=== PATIENT | male | born 1965 | race Caucasian/White ===

== ENCOUNTER 2021-06-29 14:04 | Observation (INO) | payer OTHER ==
--- NOTE | 2021-06-29 14:07 | ERPHSYRPT ---
- History of Present Illness Time Seen by Provider: 06/29/21 14:07 Historian: patient Exam Limitations: no limitations Physician History: This is an obese 56-year-old white male who has a history of diabetes and hypertension and has not been taking his medication because he often forgets. He states that it has been at least 3 days since he took any of his medication. 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 It has been hurting since that time. In addition, at approximate 10:00 this morning, after eating a large [employer] breakfast, patient began having significant abdominal pain which she describes as severe and generalized. Patient has had an appendectomy in the past. His other intra-abdominal organs remain. He has had no other intra-abdominal surgeries. Patient denies chest pain. He denies shortness of breath. He has no nausea vomiting or diarrhea symptoms. He has no cough or fever. Timing/Duration: today Activities at Onset: none Quality: aching, throbbing Abdominal Pain Onset Location: generalized abdomen Pain Radiation: no radiation Severity of Pain-Max: moderate Severity of Pain-Current: moderate Modifying Factors: Improves With: nothing Associated Symptoms: No chest pain, No diarrhea, No nausea, No shortness of breath, No vomiting Previous symptoms: no prior history Allergies/Adverse Reactions: Iodinated Contrast Media Adverse Reaction (Verified 06/29/21 14:35) Home Medications: Empagliflozin [Jardiance] 10 mg PO DAILY 06/29/21 [History] Fluoxetine HCl 20 mg [Prozac 20 MG] 20 mg PO DAILY 06/29/21 [History] Lisinopril 20 mg [Zestril 20 MG] 20 mg PO DAILY 06/29/21 [History] Travel Risk - International Travel Have you traveled outside of the country in past 3 weeks: No - Coronavirus Screening Are you exhibiting any of the following symptoms?: No Close contact with a COVID-19 positive Pt in past 14-21 Days: No - Review of Systems Constitutional: No Symptoms Eyes: No Symptoms Ears, Nose, & Throat: No Symptoms Respiratory: No Symptoms Cardiac: No Symptoms Abdominal/Gastrointestinal: Abdominal Pain Genitourinary Symptoms: No Symptoms Musculoskeletal: No Symptoms Skin: No Symptoms Neurological: No Symptoms Psychological: No Symptoms Endocrine: No Symptoms Hematologic/Lymphatic: No Symptoms Immunological/Allergic: No Symptoms All Other Systems: Reviewed and Negative - Past Medical History Pertinent Past Medical History: Yes - Past Surgical History Past Surgical History: Yes - Nursing Vital Signs Nursing Vital Signs: Initial Vital Signs Temperature 96.7 F 06/29/21 14:11 Pulse Rate 74 06/29/21 14:11 Blood Pressure 236/132 06/29/21 14:11 O2 Sat by Pulse Oximetry 97 06/29/21 14:11 Pain Scale Pain Intensity 5 - Physical Exam General Appearance: no apparent distress, alert, anxiety, obese Eye Exam: PERRL/EOMI, eyes nml inspection Ears, Nose, Throat Exam: normal ENT inspection, moist mucous membranes Neck Exam: normal inspection, non-tender, supple, full range of motion Respiratory Exam: normal breath sounds, lungs clear, No chest tenderness, No respiratory distress, No airway intact Cardiovascular Exam: regular rate/rhythm, normal heart sounds, normal peripheral pulses Gastrointestinal/Abdomen Exam: soft, normal bowel sounds, tenderness (Mild diffuse), guarding ( tenderness to palpation), No rebound Rectal Exam: not done Back Exam: normal inspection, normal range of motion, No CVA tenderness, No vertebral tenderness Extremity Exam: normal inspection, normal range of motion, pelvis stable Neurologic Exam: alert, oriented x 3, cooperative, 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, normal mood/affect, nml cerebellar function, nml station & gait, sensation nml Skin Exam: normal color, warm, dry Lymphatic Exam: No adenopathy SpO2 Interpretation: normal O2 Delivery: Room Air - Course Nursing assessment & vital signs reviewed: Yes Ordered Tests: Active Orders 24 hr Category Date Time Status IV Insertion STAT Care 06/29/21 14:52 Active ABDOMEN AND PELVIS W/0 CONTRAS [CT] Stat Exams 06/29/21 14:52 Completed FEMUR Stat Exams 06/29/21 15:21 Completed AMYLASE Stat Lab 06/29/21 14:52 Completed CBC W DIFF Stat Lab 06/29/21 14:52 Completed CMP Stat Lab 06/29/21 14:52 Completed LIPASE Stat Lab 06/29/21 14:52 Completed Lactic Acid Stat Lab 06/29/21 15:10 Completed POCT GLUCOSE Stat Lab 06/29/21 14:23 Completed TROPONIN Q3H Lab 06/29/21 18:30 Completed TROPONIN Q3H Lab 06/29/21 21:30 Ordered TROPONIN Q3H Lab 06/30/21 00:30 Ordered TROPONIN Q3H Lab 06/30/21 03:30 Ordered TROPONIN Q3H Lab 06/30/21 06:30 Ordered UA W/RFX UR CULTURE Stat Lab 06/29/21 16:45 Completed Transfer Order Routine Transfer 06/29/21 Ordered Medication Summary Discontinued Medications Generic Name Dose Route Start Last Admin Trade Name Mere PRN Reason Stop Dose Admin Clonidine 0.1 mg 06/29/21 17:46 06/29/21 17:49 Clonidine Hcl 0.1 Mg Tablet PO 06/29/21 17:47 0.1 mg STAT ONE Administration Clonidine Confirm 06/29/21 17:49 Clonidine Hcl 0.1 Mg Tablet Administered 06/29/21 17:50 Dose 0.1 mg .ROUTE .STK-MED ONE Enalaprilat 1.25 mg 06/29/21 16:33 06/29/21 16:53 Enalaprilat 2.5 Mg Injection IV 06/29/21 16:34 1.25 mg STAT ONE Administration Enalaprilat Confirm 06/29/21 16:49 Enalaprilat 2.5 Mg Injection Administered 06/29/21 16:50 Dose 2.5 mg IV .STK-MED ONE Enalaprilat 0.625 mg 06/29/21 18:58 06/29/21 19:40 Enalaprilat 2.5 Mg Injection IV 06/29/21 18:59 0.625 mg STAT ONE Administration Enalaprilat Confirm 06/29/21 19:36 Enalaprilat 2.5 Mg Injection Administered 06/29/21 19:37 Dose 2.5 mg IV .STK-MED ONE Hydromorphone HCl 1 mg 06/29/21 14:52 06/29/21 15:28 Hydromorphone 1 Mg/1ml Inj 1 Mg/Ml Syringe IV 06/29/21 14:53 1 mg STAT ONE Administration Hydromorphone HCl Confirm 06/29/21 15:26 Hydromorphone 1 Mg/1ml Inj 1 Mg/Ml Syringe Administered 06/29/21 15:27 Dose 1 mg .ROUTE .STK-MED ONE Hydromorphone HCl 1 mg 06/29/21 18:01 06/29/21 18:11 Hydromorphone 1 Mg/1ml Inj 1 Mg/Ml Syringe IV 06/29/21 18:02 1 mg STAT ONE Administration Hydromorphone HCl Confirm 06/29/21 18:06 Hydromorphone 1 Mg/1ml Inj 1 Mg/Ml Syringe Administered 06/29/21 18:07 Dose 1 mg .ROUTE .STK-MED ONE Sodium Chloride 1,000 mls @ 999 mls/hr 06/29/21 14:52 06/29/21 16:48 Sodium Chloride 0.9% 1000 Ml IV 06/29/21 15:52 Infused .Q1H1M STA Infusion Sodium Chloride Confirm 06/29/21 15:26 Sodium Chloride 0.9% 1000 Ml Administered 06/29/21 15:27 Dose 1,000 mls @ ud .ROUTE .STK-MED ONE Sodium Chloride 1,000 mls @ 999 mls/hr 06/29/21 18:01 06/29/21 18:09 Sodium Chloride 0.9% 1000 Ml IV 06/29/21 19:01 999 mls/hr .Q1H1M STA Administration Sodium Chloride Confirm 06/29/21 18:06 Sodium Chloride 0.9% 1000 Ml Administered 06/29/21 18:07 Dose 1,000 mls @ ud .ROUTE .STK-MED ONE Sodium Chloride Confirm 06/29/21 18:20 Sodium Chloride 0.9% 50 Ml Administered 06/29/21 18:21 Dose 50 mls @ ud IV .STK-MED ONE Ondansetron HCl 4 mg 06/29/21 14:52 06/29/21 15:27 Ondansetron Hcl 4 Mg/2 Ml Vial IV 06/29/21 14:53 4 mg STAT ONE Administration Ondansetron HCl Confirm 06/29/21 15:26 Ondansetron Hcl 4 Mg/2 Ml Vial Administered 06/29/21 15:27 Dose 4 mg .ROUTE .STK-MED ONE Prochlorperazine Edisylate 10 mg 06/29/21 18:02 06/29/21 18:13 Prochlorperazine Edisylate 10 Mg/2 Ml Vial IV 06/29/21 18:03 10 mg STAT ONE Administration Prochlorperazine Edisylate Confirm 06/29/21 18:06 Prochlorperazine Edisylate 10 Mg/2 Ml Vial Administered 06/29/21 18:07 Dose 10 mg .ROUTE .STK-MED ONE Lab/Rad Data: Laboratory Result Diagrams 06/29/21 14:52 06/29/21 14:52 Laboratory Results 06/29/21 06/29/21 06/29/21 Range/Units 18:30 16:45 15:10 WBC (4.0-10.5) K/mm3 RBC (4.1-5.6) M/mm3 Hgb (12.5-18.0) gm/dl Hct (42-50) % MCV (78-100) fl MCH (26-32) pg MCHC (32-36) g/dl RDW (11.5-14.0) % Plt Count (150-450) K/mm3 MPV (7.5-11.0) fl Gran % (36.0-66.0) % Eos # (Auto) (0-0.5) Absolute Lymphs (auto) (1.0-4.6) Absolute Monos (auto) (0.0-1.3) Lymphocytes % (24.0-44.0) % Monocytes % (0.0-12.0) % Eosinophils % (0.00-5.0) % Basophils % (0.0-0.4) % Absolute Granulocytes (1.4-6.9) Basophils # (0-0.4) Sodium (137-145) mmol/L Potassium (3.5-5.1) mmol/L Chloride (98-107) mmol/L Carbon Dioxide (22-30) mmol/L Anion Gap (5-15) MEQ/L BUN (9-20) mg/dL Creatinine (0.66-1.25) mg/dL Estimated GFR ML/MIN Glucose (74-106) mg/dL POC Glucometer (74 to 106) mg/dL Lactic Acid 1.4 (0.4-2.0) Calcium (8.4-10.2) mg/dL Total Bilirubin (0.2-1.3) mg/dL AST (17-59) U/L ALT (0-50) U/L Alkaline Phosphatase (38-126) U/L Troponin I < 0.012 (0.000-0.034) ng/mL Serum Total Protein (6.3-8.2) g/dL Albumin (3.5-5.0) g/dL Amylase (30-110) U/L Lipase (23-300) U/L Urine Color STRAW (YELLOW) Urine Appearance CLEAR (CLEAR) Urine pH 8.0 (5-6) Ur Specific [place] 1.021 (1.005-1.025) Urine Protein 100 (Negative) Urine Ketones SMALL (NEGATIVE) Urine Blood NEGATIVE (0-5) Tab/ul Urine Nitrite NEGATIVE (NEGATIVE) Urine Bilirubin NEGATIVE (NEGATIVE) Urine Urobilinogen NEGATIVE (0-1) mg/dL Ur Leukocyte Esterase NEGATIVE (NEGATIVE) Urine WBC (Auto) NONE (0-5) /HPF Urine RBC (Auto) NONE (0-2) /HPF U Epithel Cells (Auto) NONE (FEW) /HPF Urine Bacteria (Auto) NONE (NEGATIVE) /HPF Urine Culture Reflexed NO (NO) Urine Glucose >=500 (NEGATIVE) mg/dL 06/29/21 06/29/21 06/29/21 Range/Units 14:52 14:52 14:23 WBC 11.2 H (4.0-10.5) K/mm3 RBC 6.04 H (4.1-5.6) M/mm3 Hgb 16.0 (12.5-18.0) gm/dl Hct 46.4 (42-50) % MCV 76.8 L (78-100) fl MCH 26.5 (26-32) pg MCHC 34.5 (32-36) g/dl RDW 13.1 (11.5-14.0) % Plt Count 185 (150-450) K/mm3 MPV 11.1 H (7.5-11.0) fl Gran % 83.2 H (36.0-66.0) % Eos # (Auto) 0.04 (0-0.5) Absolute Lymphs (auto) 1.35 (1.0-4.6) Absolute Monos (auto) 0.47 (0.0-1.3) Lymphocytes % 12.0 L (24.0-44.0) % Monocytes % 4.2 (0.0-12.0) % Eosinophils % 0.4 (0.00-5.0) % Basophils % 0.2 (0.0-0.4) % Absolute Granulocytes 9.34 H (1.4-6.9) Basophils # 0.02 (0-0.4) Sodium 138 (137-145) mmol/L Potassium 3.8 (3.5-5.1) mmol/L Chloride 99 (98-107) mmol/L Carbon Dioxide 26 (22-30) mmol/L Anion Gap 16.6 H (5-15) MEQ/L BUN 9 (9-20) mg/dL Creatinine 0.60 L (0.66-1.25) mg/dL Estimated GFR > 60.0 ML/MIN Glucose 302 H (74-106) mg/dL POC Glucometer 309 H (74 to 106) mg/dL Lactic Acid (0.4-2.0) Calcium 8.9 (8.4-10.2) mg/dL Total Bilirubin 2.30 H (0.2-1.3) mg/dL AST 41 (17-59) U/L ALT 30 (0-50) U/L Alkaline Phosphatase 110 (38-126) U/L Troponin I (0.000-0.034) ng/mL Serum Total Protein 7.5 (6.3-8.2) g/dL Albumin 4.6 (3.5-5.0) g/dL Amylase 58 (30-110) U/L Lipase 192 (23-300) U/L Urine Color (YELLOW) Urine Appearance (CLEAR) Urine pH (5-6) Ur Specific [place] (1.005-1.025) Urine Protein (Negative) Urine Ketones (NEGATIVE) Urine Blood (0-5) Tab/ul Urine Nitrite (NEGATIVE) Urine Bilirubin (NEGATIVE) Urine Urobilinogen (0-1) mg/dL Ur Leukocyte Esterase (NEGATIVE) Urine WBC (Auto) (0-5) /HPF Urine RBC (Auto) (0-2) /HPF U Epithel Cells (Auto) (FEW) /HPF Urine Bacteria (Auto) (NEGATIVE) /HPF Urine Culture Reflexed (NO) Urine Glucose (NEGATIVE) mg/dL - Progress Progress: improved, pain not gone completely Progress Note: 06/29/21 18:23 X-ray of right femur shows no acute fracture or dislocation. CAT scan of the abdomen pelvis without contrast shows small duodenal diverticulum and no other acute intra-abdominal or intrapelvic findings. Discussed with Dr.: Reinoso Counseled pt/family regarding: lab results, diagnosis, need for follow-up, rad results - Departure Departure Disposition: Observation Clinical Impression: Hypertensive urgency, Abdominal pain, Vomiting Condition: Fair Critical Care Time: Yes Critical Care Time(excluding separately billable procedures): Critical 30-74 mins (40 minutes) Referrals: ISABELLE BARTHOLOMEW [ACTIVE STAFF] - Follow up/PCP as directed
[2021-06-29] MEDS ORDERED: Sodium Chloride 0.9% 1000 ML 1,000 ML IV STA ×2 (14:52→18:01)
[2021-06-29] MEDS ORDERED: Zofran 4 MG/2 ML VIAL IV ONE (14:52)
[2021-06-29] MEDS ORDERED: Hydromorphone 1 mg/ml Injection IV ONE ×2 (14:52→18:01)
[2021-06-29] MEDS ORDERED: Zofran 4 MG/2 ML VIAL ONE (15:26)
[2021-06-29] MEDS ORDERED: Hydromorphone 1 mg/ml Injection ONE ×2 (15:26→18:06)
[2021-06-29] MEDS ORDERED: Sodium Chloride 0.9% 1000 ML 1,000 ML ONE ×2 (15:26→18:06)
--- NOTE | 2021-06-29 15:34 | XRAY ---
Indication: Right abdomen pain. Multiple contiguous axial images obtained through abdomen and pelvis without contrast. Comparison: None Lung bases demonstrates mild bibasilar subsegmental atelectasis/scarring. No infiltrate or effusion. Heart not enlarged. Noncontrasted stomach and bowel loops appear nonobstructed with previous appendectomy. Descending duodenum demonstrates small 2.5 cm diverticulum. No free fluid/air. Mild fatty liver measuring 22.1 cm. Enlarged spleen measuring 16.6 cm. Remaining liver, gallbladder, pancreas, spleen, adrenal glands, kidneys, ureters, and bladder are unremarkable for noncontrast exam. Minimal aortoiliac calcifications without AAA. Osseous structures intact with minimal degenerative changes throughout the thoracolumbar spine. Mild bilateral hip degenerative arthropathy. No ventral or inguinal hernias. Impression: 1. Small duodenal diverticulum, fatty hepatomegaly, and splenomegaly. 2. Remaining CT abdomen/pelvis without contrast exam is negative.
[2021-06-29 15:35] LABS: Absolute Neutrophil Ct (ANC) 9.34 (1.4-6.9); BASOPHIL % 0.2 % (0.0-0.4); Basophil (Absolute #) 0.02 (0-0.4); Eosinophil % 0.4 % (0.00-5.0); Eosinophil (Absolute #) 0.04 (0-0.5); Hematocrit 46.4 % (42-50); Lymphocyte (Absolute #) 1.35 (1.0-4.6); Mean Cell Volume 76.8 fl (78-100); Mean Corpuscular Hemoglobin 26.5 pg (26-32); Mean Corpuscular Hgb Concent. 34.5 g/dl (32-36); Mean Platelet Volume 11.1 fl (7.5-11.0); Monocyte (Absolute #) 0.47 (0.0-1.3); Monocytes % 4.2 % (0.0-12.0); Neutrophil % 83.2 % (36.0-66.0); Platelet Count 185 K/mm3 (150-450); Red Blood Count 6.04 M/mm3 (4.1-5.6); Red Cell Distribution Width 13.1 % (11.5-14.0); White Blood Count 11.2 K/mm3 (4.0-10.5)
[2021-06-29 15:52] LABS: ALBUMIN 4.6 g/dL (3.5-5.0); ALKALINE PHOSPHATASE 110 U/L (38-126); AMYLASE 58 U/L (30-110); ANION GAP 16.6 MEQ/L (5-15); BLOOD UREA NITROGEN 9 mg/dL (9-20); CHLORIDE 99 mmol/L (98-107); Calcium 8.9 mg/dL (8.4-10.2); Carbon Dioxide 26 mmol/L (22-30); EST GLOMERULAR FILTRATION RATE > 60.0 ML/MIN; Glucose 302 mg/dL (74-106); LIPASE 192 U/L (23-300); Potassium 3.8 mmol/L (3.5-5.1); SGOT/AST 41 U/L (17-59); SGPT/ALT 30 U/L (0-50); SODIUM 138 mmol/L (137-145); Total Protein 7.5 g/dL (6.3-8.2)
[2021-06-29] MEDS ORDERED: VASOTEC I.V. 2.5 MG IV ONE ×4 (16:33→19:36)
--- NOTE | 2021-06-29 16:41 | XRAY ---
Indication: Status post fall. Comparison: None 2 view right femur demonstrates tiny femur neck bone island and a few pelvic surgical clips. No other bony, articular, or soft tissue abnormalities.
[2021-06-29 17:18] LABS: Appearance CLEAR (CLEAR); Bilirubin NEGATIVE (NEGATIVE); Blood NEGATIVE Ery/ul (0-5); Glucose >=500 mg/dL (NEGATIVE); Ketones SMALL (NEGATIVE); Leukocyte Esterase NEGATIVE (NEGATIVE); Nitrite NEGATIVE (NEGATIVE); Protein,Urine Dip 100 (Negative); Specific Gravity 1.021 (1.005-1.025); Urobilinogen NEGATIVE mg/dL (0-1)
[2021-06-29] MEDS ORDERED: Catapres 0.1 MG PO ONE (17:46)
[2021-06-29] MEDS ORDERED: Catapres 0.1 MG ONE (17:49)
[2021-06-29] MEDS ORDERED: Compazine 10 MG/2 ML IV ONE (18:02)
[2021-06-29] MEDS ORDERED: Compazine 10 MG/2 ML ONE (18:06)
[2021-06-29 21:27] LABS: INFLUENZA A NEGATIVE (NEGATIVE); INFLUENZA B NEGATIVE (NEGATIVE); RESPIRATORY SYNCTIAL VIRUS NEGATIVE (Negative); SARS-CoV-2 Xpert Express NEGATIVE (NEGATIVE)
[2021-06-30] MEDS: Sodium Chloride 0.9% 1000 ML 1,000 ML IV SCH ×3 (00:05→20:14)
[2021-06-30] MEDS: Hydromorphone 1 mg/ml Injection IV PRN ×4 (00:05→20:06)
[2021-06-30] MEDS: VASOTEC I.V. 2.5 MG IV SCH ×2 (00:06→06:28)
[2021-06-30] MEDS: Zofran 4 MG/2 ML VIAL IV PRN ×3 (00:07→20:06)
[2021-06-30] MEDS: TYLENOL 325 MG PO PRN ×4 (04:47→23:54)
[2021-06-30 05:06] LABS: Absolute Neutrophil Ct (ANC) 10.47 (1.4-6.9); BASOPHIL % 0.1 % (0.0-0.4); Basophil (Absolute #) 0.01 (0-0.4); Eosinophil % 0.1 % (0.00-5.0); Eosinophil (Absolute #) 0.01 (0-0.5); Hematocrit 43.4 % (42-50); Hemoglobin 14.8 gm/dl (12.5-18.0); Lymphocyte (Absolute #) 1.88 (1.0-4.6); Lymphocytes % 14.1 % (24.0-44.0); Mean Cell Volume 77.8 fl (78-100); Mean Corpuscular Hemoglobin 26.5 pg (26-32); Mean Corpuscular Hgb Concent. 34.1 g/dl (32-36); Mean Platelet Volume 10.6 fl (7.5-11.0); Monocyte (Absolute #) 0.95 (0.0-1.3); Monocytes % 7.1 % (0.0-12.0); Neutrophil % 78.6 % (36.0-66.0); Platelet Count 213 K/mm3 (150-450); Red Blood Count 5.58 M/mm3 (4.1-5.6); White Blood Count 13.3 K/mm3 (4.0-10.5)
[2021-06-30 05:23] LABS: ALBUMIN 3.8 g/dL (3.5-5.0); ALKALINE PHOSPHATASE 91 U/L (38-126); BLOOD UREA NITROGEN 9 mg/dL (9-20); CHLORIDE 98 mmol/L (98-107); Calcium 8.4 mg/dL (8.4-10.2); Carbon Dioxide 28 mmol/L (22-30); EST GLOMERULAR FILTRATION RATE > 60.0 ML/MIN; Glucose 273 mg/dL (74-106); Potassium 3.6 mmol/L (3.5-5.1); SGOT/AST 24 U/L (17-59); SGPT/ALT 24 U/L (0-50); SODIUM 135 mmol/L (137-145); Total Protein 6.4 g/dL (6.3-8.2)
[2021-06-30] MEDS ORDERED: VASOTEC I.V. 2.5 MG IV PRN (09:10)
[2021-06-30] MEDS ORDERED: MEDICATION INTERVENTION MC SCH (10:45)
--- NOTE | 2021-06-30 10:54 | XRAY ---
Indication: Right upper quadrant pain. Two-dimensional gallbladder sonogram performed. Comparison: None Gallbladder moderately distended with intraluminal sludge. No gallstones, abnormal wall thickening, or pericholecystic fluid. Common bile duct measures 2.5 mm. No intrahepatic biliary distention. Remaining visualized liver, pancreas, and right kidney appear sonographically unremarkable. Right kidney measures 11.1 cm in length. No ascites. Impression: Moderately distended gallbladder with sludge. Negative for acute cholecystitis or biliary distention.
[2021-06-30] MEDS: ECOTRIN 81 MG PO SCH (11:00)
[2021-06-30] MEDS: Januvia 50 MG PO SCH (11:00)
[2021-06-30] MEDS ORDERED: ROCEPHIN 1 Gm-D5w 50 ml Bag** 1 G/50 ML IVPB IV SCH (11:00)
[2021-06-30] MEDS: Lantus Insulin SQ SCH (11:01)
[2021-06-30] MEDS: Prozac 20 MG PO SCH (11:01)
[2021-06-30] MEDS: Zestril 20 MG PO SCH (11:01)
[2021-06-30] MEDS ORDERED: BABY ASPIRIN 81 MG CHEW PO SCH (12:00)
[2021-06-30] MEDS ORDERED: VASOTEC I.V. 2.5 MG IV SCH (12:00)
[2021-06-30] MEDS ORDERED: NON-FORMULARY ITEM (Sitagliptin Phos/Metformin Hcl [Janumet 50-1,000 Mg Tablet] 1 EACH Tab PO SCH (12:00)
[2021-06-30 14:33] LABS: Hematocrit 43.9 % (42-50); Hemoglobin 14.9 gm/dl (12.5-18.0); Mean Cell Volume 78.3 fl (78-100); Mean Corpuscular Hemoglobin 26.6 pg (26-32); Mean Corpuscular Hgb Concent. 33.9 g/dl (32-36); Mean Platelet Volume 10.4 fl (7.5-11.0); Platelet Count 200 K/mm3 (150-450); Red Blood Count 5.61 M/mm3 (4.1-5.6); White Blood Count 15.5 K/mm3 (4.0-10.5)
[2021-06-30] MEDS: NON-FORMULARY ITEM PO SCH (15:30)
[2021-06-30] MEDS: Glucophage 500 MG PO SCH (17:04)
[2021-07-01] MEDS: Zofran 4 MG/2 ML VIAL IV PRN ×6 (02:28→22:18)
[2021-07-01] MEDS: Hydromorphone 1 mg/ml Injection IV PRN ×6 (02:28→22:18)
[2021-07-01] MEDS: TYLENOL 325 MG PO PRN ×2 (04:43→16:33)
[2021-07-01] MEDS: Sodium Chloride 0.9% 1000 ML 1,000 ML IV SCH ×2 (05:54→17:00)
[2021-07-01 06:01] LABS: Hematocrit 40.9 % (42-50); Hemoglobin 13.5 gm/dl (12.5-18.0); Mean Corpuscular Hemoglobin 26.4 pg (26-32); Mean Platelet Volume 10.5 fl (7.5-11.0); Platelet Count 164 K/mm3 (150-450); Red Blood Count 5.11 M/mm3 (4.1-5.6); Red Cell Distribution Width 13.1 % (11.5-14.0)
[2021-07-01 06:23] LABS: ALBUMIN 3.1 g/dL (3.5-5.0); ALKALINE PHOSPHATASE 76 U/L (38-126); ANION GAP 10.7 MEQ/L (5-15); BLOOD UREA NITROGEN 14 mg/dL (9-20); CHLORIDE 98 mmol/L (98-107); Calcium 8.2 mg/dL (8.4-10.2); Carbon Dioxide 29 mmol/L (22-30); Creatinine 1 0.74 mg/dL (0.66-1.25); EST GLOMERULAR FILTRATION RATE > 60.0 ML/MIN; Glucose 141 mg/dL (74-106); Potassium 3.2 mmol/L (3.5-5.1); SGOT/AST 60 U/L (17-59); SGPT/ALT 34 U/L (0-50); SODIUM 134 mmol/L (137-145); Total Protein 5.6 g/dL (6.3-8.2)
--- NOTE | 2021-07-01 07:19 | XRAY ---
Indication: Short of breath with low oxygenation. Comparison: None PA/lateral chest demonstrates mild bibasilar subsegmental atelectasis/scarring, minimal right costophrenic angle pleural effusion/thickening, right hilar surgical clips, and mild right hemidiaphragm elevation. Remaining heart, lungs, and bony thorax unremarkable. Comment: Preliminary interpretation made by [facility]. No critical discrepancy.
[2021-07-01] MEDS ORDERED: Zofran 4 MG/2 ML VIAL IV PRN (07:52)
[2021-07-01] MEDS ORDERED: Zofran 4 MG/2 ML VIAL IV ONE (09:00)
[2021-07-01] MEDS ORDERED: NON-FORMULARY ITEM (Empagliflozin [Jardiance] 10 MG Tablet) PO SCH (10:00)
[2021-07-01] MEDS ORDERED: NON-FORMULARY ITEM (Insulin Degludec [Tresiba Flextouch U-200] 200 UNIT/ML Insuln.Pen) SQ SCH (10:00)
[2021-07-01] MEDS: Prozac 20 MG PO SCH (10:22)
[2021-07-01] MEDS: ECOTRIN 81 MG PO SCH (10:22)
[2021-07-01] MEDS: ENOXAPARIN SODIUM SQ SCH (10:23)
[2021-07-01] MEDS: Zestril 20 MG PO SCH (10:23)
[2021-07-01] MEDS: Januvia 50 MG PO SCH (10:31)
[2021-07-01] MEDS: NON-FORMULARY ITEM PO SCH (10:31)
[2021-07-01] MEDS: Glucophage 500 MG PO SCH ×2 (10:31→14:12)
[2021-07-01] MEDS: Lantus Insulin SQ SCH (10:31)
[2021-07-01] MEDS: Zosyn 3.375 GM Vial 3.375 GM in Sodium Chloride 100ML MINI-BAG PLUS 100 ML IV SCH ×3 (11:20→23:14)
[2021-07-01 11:29] LABS: Appearance CLEAR (CLEAR); Bilirubin NEGATIVE (NEGATIVE); Blood SMALL Ery/ul (0-5); Glucose 150 mg/dL (NEGATIVE); Ketones TRACE (NEGATIVE); Leukocyte Esterase NEGATIVE (NEGATIVE); Mucus SLIGHT /HPF (NEGATIVE); Nitrite NEGATIVE (NEGATIVE); Protein,Urine Dip 100 (Negative); Specific Gravity 1.049 (1.005-1.025); Urobilinogen 4 mg/dL (0-1); WBC 0-2 /HPF (0-5)
--- NOTE | 2021-07-01 19:07 | XRAY ---
Indication: Short of breath, nausea, vomiting, and elevated d-dimer. Multiple contiguous axial images obtained through the chest using 100 cc Isovue-370 contrast and PE protocol. Comparison: None Good opacification of the pulmonary arteries to include the lobar and segmental branches. No pulmonary embolus. Heart not enlarged. Aorta is normal in course and caliber. No pathologic mediastinal/hilar lymphadenopathy. There is right hemidiaphragm elevation with bibasilar subsegmental atelectasis. No suspicious pulmonary mass/nodule, infiltrate, or effusion. Bony thorax intact. Limited upper abdomen demonstrates mild diffuse fatty liver and 17 cm splenomegaly. Incompletely mildly distended gallbladder without obvious gallstones or biliary distention. Impression: 1. Negative pulmonary embolus. 2. Right hemidiaphragm elevation with bibasilar subsegmental atelectasis. 3. Mildly distended gallbladder. Sonogram may yield further information if clinically warranted. 4. Incidental fatty liver and splenomegaly. Comment: Preliminary interpretation made by [facility]. No critical discrepancy.
[2021-07-01] MEDS: HUMULIN R SQ PRN (23:56)
[2021-07-02] MEDS: Sodium Chloride 0.9% 1000 ML 1,000 ML IV SCH (03:08)
[2021-07-02] MEDS: Hydromorphone 1 mg/ml Injection IV PRN ×2 (03:15→09:32)
[2021-07-02] MEDS: Zofran 4 MG/2 ML VIAL IV PRN (03:15)
[2021-07-02] MEDS: TYLENOL 325 MG PO PRN (03:59)
[2021-07-02] MEDS: Zosyn 3.375 GM Vial 3.375 GM in Sodium Chloride 100ML MINI-BAG PLUS 100 ML IV SCH ×2 (05:06→11:23)
[2021-07-02] MEDS: HUMULIN R SQ PRN ×2 (05:47→09:24)
[2021-07-02 05:50] LABS: Hematocrit 39.2 % (42-50); Hemoglobin 12.8 gm/dl (12.5-18.0); Mean Cell Volume 80.7 fl (78-100); Mean Corpuscular Hemoglobin 26.3 pg (26-32); Mean Corpuscular Hgb Concent. 32.7 g/dl (32-36); Mean Platelet Volume 11.1 fl (7.5-11.0); Platelet Count 126 K/mm3 (150-450); Red Blood Count 4.86 M/mm3 (4.1-5.6); Red Cell Distribution Width 13.1 % (11.5-14.0)
[2021-07-02 06:07] LABS: ALBUMIN 2.8 g/dL (3.5-5.0); ALKALINE PHOSPHATASE 112 U/L (38-126); ANION GAP 10.3 MEQ/L (5-15); BLOOD UREA NITROGEN 11 mg/dL (9-20); CHLORIDE 98 mmol/L (98-107); Calcium 7.7 mg/dL (8.4-10.2); Carbon Dioxide 30 mmol/L (22-30); Creatinine 1 0.84 mg/dL (0.66-1.25); EST GLOMERULAR FILTRATION RATE > 60.0 ML/MIN; Glucose 191 mg/dL (74-106); Potassium 3.1 mmol/L (3.5-5.1); SGOT/AST 30 U/L (17-59); SGPT/ALT 31 U/L (0-50); SODIUM 135 mmol/L (137-145); Total Protein 5.2 g/dL (6.3-8.2)
[2021-07-02 07:59] VITALS: BP 144/88; PULSE 86
--- NOTE | 2021-07-02 09:14 | PCM.DS ---
Discharge Summary Date of Admission: 06/29/21 23:16 Admitting Physician: STEPH ROME Consults: Consults on Case 06/30/21 12:12 Consult Surgery ROUTINE Primary Care Provider: NO FAMILY DOCTOR Allergies Allergies Iodinated Contrast Media Adverse Reaction (Verified 06/29/21 14:35) Hospital Summary - Hospital Course Hospital Course: patient was admitted with RUQ pain, enlarged gallbladder with sludge, clinically with acute cholecystitis, hx Eva Johnathan syndrome, bilirubin climbing. transferring to his own GI specialist, might require ERCP prior to surgical intervention. unable to provide services with no GI/ERCP coverage here so transfer is medically necessary. - Vitals & Intake/Output Vital Signs: Vital Signs Temperature 98.6 F 07/02/21 07:58 Pulse Rate 86 07/02/21 07:58 Respiratory Rate 21 07/02/21 07:58 Blood Pressure 144/88 07/02/21 07:58 O2 Sat by Pulse Oximetry 98 07/02/21 07:58 Intake & Output: Intake & Output 06/29/21 06/30/21 07/01/21 07/02/21 11:59 11:59 11:59 11:59 Intake Total 240 4081 4264 Output Total 2100 Balance 240 4081 2164 Weight 97.1 kg 98 kg - Lab Result Diagrams: 07/02/21 04:35 07/02/21 04:35 Lab Results-Last 24 Hrs: Lab Results-Last 24 Hours 07/01/21 07/01/21 07/01/21 Range/Units 10:30 12:01 17:50 WBC (4.0-10.5) K/mm3 RBC (4.1-5.6) M/mm3 Hgb (12.5-18.0) gm/dl Hct (42-50) % MCV (78-100) fl MCH (26-32) pg MCHC (32-36) g/dl RDW (11.5-14.0) % Plt Count (150-450) K/mm3 MPV (7.5-11.0) fl Sodium (137-145) mmol/L Potassium (3.5-5.1) mmol/L Chloride (98-107) mmol/L Carbon Dioxide (22-30) mmol/L Anion Gap (5-15) MEQ/L BUN (9-20) mg/dL Creatinine (0.66-1.25) mg/dL Estimated GFR ML/MIN Glucose (74-106) mg/dL POC Glucometer 187 H 244 H (74 to 106) mg/dL Calcium (8.4-10.2) mg/dL Total Bilirubin (0.2-1.3) mg/dL AST (17-59) U/L ALT (0-50) U/L Alkaline Phosphatase (38-126) U/L Serum Total Protein (6.3-8.2) g/dL Albumin (3.5-5.0) g/dL Urine Color ZAC (YELLOW) Urine Appearance CLEAR (CLEAR) Urine pH 6.0 (5-6) Ur Specific [place] 1.049 (1.005-1.025) Urine Protein 100 (Negative) Urine Ketones TRACE (NEGATIVE) Urine Blood SMALL (0-5) Tab/ul Urine Nitrite NEGATIVE (NEGATIVE) Urine Bilirubin NEGATIVE (NEGATIVE) Urine Urobilinogen 4 (0-1) mg/dL Ur Leukocyte Esterase NEGATIVE (NEGATIVE) Urine WBC (Auto) 0-2 (0-5) /HPF Urine RBC (Auto) NONE (0-2) /HPF U Epithel Cells (Auto) NONE (FEW) /HPF Urine Bacteria (Auto) NONE (NEGATIVE) /HPF Urine Mucus (Auto) SLIGHT (NEGATIVE) /HPF Urine Culture Reflexed NO (NO) Urine Glucose 150 (NEGATIVE) mg/dL 07/01/21 07/02/21 07/02/21 Range/Units 23:51 04:35 04:35 WBC 11.0 H (4.0-10.5) K/mm3 RBC 4.86 (4.1-5.6) M/mm3 Hgb 12.8 (12.5-18.0) gm/dl Hct 39.2 L (42-50) % MCV 80.7 (78-100) fl MCH 26.3 (26-32) pg MCHC 32.7 (32-36) g/dl RDW 13.1 (11.5-14.0) % Plt Count 126 L (150-450) K/mm3 MPV 11.1 H (7.5-11.0) fl Sodium 135 L (137-145) mmol/L Potassium 3.1 L (3.5-5.1) mmol/L Chloride 98 (98-107) mmol/L Carbon Dioxide 30 (22-30) mmol/L Anion Gap 10.3 (5-15) MEQ/L BUN 11 (9-20) mg/dL Creatinine 0.84 (0.66-1.25) mg/dL Estimated GFR > 60.0 ML/MIN Glucose 191 H (74-106) mg/dL POC Glucometer 268 H (74 to 106) mg/dL Calcium 7.7 L (8.4-10.2) mg/dL Total Bilirubin 5.00 H (0.2-1.3) mg/dL AST 30 (17-59) U/L ALT 31 (0-50) U/L Alkaline Phosphatase 112 (38-126) U/L Serum Total Protein 5.2 L (6.3-8.2) g/dL Albumin 2.8 L (3.5-5.0) g/dL Urine Color (YELLOW) Urine Appearance (CLEAR) Urine pH (5-6) Ur Specific [place] (1.005-1.025) Urine Protein (Negative) Urine Ketones (NEGATIVE) Urine Blood (0-5) Tab/ul Urine Nitrite (NEGATIVE) Urine Bilirubin (NEGATIVE) Urine Urobilinogen (0-1) mg/dL Ur Leukocyte Esterase (NEGATIVE) Urine WBC (Auto) (0-5) /HPF Urine RBC (Auto) (0-2) /HPF U Epithel Cells (Auto) (FEW) /HPF Urine Bacteria (Auto) (NEGATIVE) /HPF Urine Mucus (Auto) (NEGATIVE) /HPF Urine Culture Reflexed (NO) Urine Glucose (NEGATIVE) mg/dL 07/02/21 07/02/21 Range/Units 05:42 07:41 WBC (4.0-10.5) K/mm3 RBC (4.1-5.6) M/mm3 Hgb (12.5-18.0) gm/dl Hct (42-50) % MCV (78-100) fl MCH (26-32) pg MCHC (32-36) g/dl RDW (11.5-14.0) % Plt Count (150-450) K/mm3 MPV (7.5-11.0) fl Sodium (137-145) mmol/L Potassium (3.5-5.1) mmol/L Chloride (98-107) mmol/L Carbon Dioxide (22-30) mmol/L Anion Gap (5-15) MEQ/L BUN (9-20) mg/dL Creatinine (0.66-1.25) mg/dL Estimated GFR ML/MIN Glucose (74-106) mg/dL POC Glucometer 220 H 172 H (74 to 106) mg/dL Calcium (8.4-10.2) mg/dL Total Bilirubin (0.2-1.3) mg/dL AST (17-59) U/L ALT (0-50) U/L Alkaline Phosphatase (38-126) U/L Serum Total Protein (6.3-8.2) g/dL Albumin (3.5-5.0) g/dL Urine Color (YELLOW) Urine Appearance (CLEAR) Urine pH (5-6) Ur Specific [place] (1.005-1.025) Urine Protein (Negative) Urine Ketones (NEGATIVE) Urine Blood (0-5) Tab/ul Urine Nitrite (NEGATIVE) Urine Bilirubin (NEGATIVE) Urine Urobilinogen (0-1) mg/dL Ur Leukocyte Esterase (NEGATIVE) Urine WBC (Auto) (0-5) /HPF Urine RBC (Auto) (0-2) /HPF U Epithel Cells (Auto) (FEW) /HPF Urine Bacteria (Auto) (NEGATIVE) /HPF Urine Mucus (Auto) (NEGATIVE) /HPF Urine Culture Reflexed (NO) Urine Glucose (NEGATIVE) mg/dL - Radiology Exams Ordered Rad Exams-Entire Visit: Radiology Procedures Category Date Time Status CHEST 2 VIEWS (PA AND LAT) Urgent Exams 07/01/21 Completed CHEST WITH CONTRAST [CT] Routine Exams 07/01/21 08:45 Completed MRI ABD W/O CONTRAST [MRI] Routine Exams 07/05/21 18:50 Ordered Ultrasound Gallbladder [GALLBLADDER] [US] Routine Exams 06/30/21 09:45 Completed - Procedures and Test Procedures and Tests throughout Hospitalization: Therapy Orders & Screens 07/01/21 06:33 Oxygen NASAL CANNULA 2 lpm Comment: Diagnosis: abdominal pain 07/01/21 07:00 Incentive Spirometry TID Comment: Diagnosis: abdominal pain Discharge Exam General Appearance: no apparent distress Neurologic Exam: alert, oriented x 3 Respiratory Exam: normal breath sounds, lungs clear, No respiratory distress Cardiovascular Exam: regular rate/rhythm, normal heart sounds Gastrointestinal/Abdomen Exam: tenderness (RUQ), No distention, No mass, No guarding, No rebound Extremity Exam: normal inspection, normal range of motion Skin Exam: normal color, warm, dry Final Diagnosis/Problem List - Final Discharge Diagnosis/Problem (1) Acute cholecystitis Current Visit: Yes Status: Acute Code(s): K81.0 - ACUTE CHOLECYSTITIS (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 - OTHER DISORDERS OF BILIRUBIN METABOLISM (3) Elevated bilirubin Current Visit: Yes Status: Acute Assessment & Plan: increasing, predominately unconjugated c/w eva johnathan Code(s): R17 - UNSPECIFIED JAUNDICE - Discharge Disposition: XFER OTHER Condition: Fair Prescriptions: No Action Lisinopril 20 mg [Zestril 20 MG] 20 mg PO DAILY Fluoxetine HCl 20 mg [Prozac 20 MG] 20 mg PO DAILY Empagliflozin [Jardiance] 10 mg PO DAILY Insulin Degludec [Tresiba Flextouch U-200] 100 units SQ DAILY Sitagliptin Phos/Metformin HCl [Janumet 50-1,000 mg Tablet] 2 tab PO DAILY Aspirin 81 gm Chew [Baby Aspirin 81 mg Chew] 81 mg PO DAILY Forms: Transfer Record [employer]
[2021-07-02] MEDS: Zestril 20 MG PO SCH (09:23)
[2021-07-02] MEDS: Lantus Insulin SQ SCH (09:23)
[2021-07-02] MEDS: Januvia 50 MG PO SCH (09:23)
[2021-07-02] MEDS: Prozac 20 MG PO SCH (09:23)
[2021-07-02] MEDS: ENOXAPARIN SODIUM SQ SCH (09:23)
[2021-07-02] MEDS: ECOTRIN 81 MG PO SCH (09:23)
[2021-07-02] MEDS: NON-FORMULARY ITEM PO SCH (09:24)
[2021-07-02] MEDS ORDERED: HOLD METFORMIN PRODUCTS FOR 48 HOURS MC SCH (10:00)
[2021-07-02 11:03] VITALS: O2SAT 95
== END 2021-07-02 11:59 ==
LOC: ED 14:04 → MED SURG 23:16
PROVIDERS: ADMIT Family Medicine; ATTEND Family Medicine
DX: K81.0 Acute cholecystitis (principal); E80.6 Other disorders of bilirubin metabolism; R17 Unspecified jaundice; R11.2 Nausea with vomiting, unspecified; Z79.899 Other long term (current) drug therapy; Z20.828 Contact with and (suspected) exposure to other viral communicable diseases
CPT/HCPCS: 0241U; 36000; 36415; 71046; 71260; 73552; 74176; 76705; 80053; 81001; 82150; 82248; 82947; 83605; 83690; 84484; 85025; 85027; 85379; 93268; 94760; 96360; 96361; 96374; 96375; 96376; 99285; 99291; G0378; J0696; J1170; J1650; J1815; J2405; A9270-GY